=== PATIENT | male | born 1975 | race Hispanic/Latino ===

== ENCOUNTER 2022-08-13 19:57 | Emergency (ER) | payer SELFPAY ==
[2022-08-13 20:50] VITALS: BP 120/84
[2022-08-13 20:51] LABS: BASO% 0.2 % (0-3); EOS% 2.6 % (0-8); HEMATOCRIT 42.6 % (39.0-50.0); HEMOGLOBIN 14.7 g/dl (14.0-18.0); IMMATURE GRANULOCYTES 0.6 % (0.0-5.0); LYMPH% 34.9 % (15-41); MEAN CELL VOLUME 92.6 fL CALC (80.0-100.0); MEAN CORPUSCULAR HGB CONC 34.5 g/dL CAL (32.0-36.0); MONO% 10.7 % (2-13); NEUT# 2.77 thou/uL (1.82-7.42); RED BLOOD COUNT 4.6 mill/uL (4.70-6.10); RED CELL DISTRI WIDTH 12.4 % (11.5-15.5)
[2022-08-13 21:00] VITALS: BP 136/82
[2022-08-13 21:05] LABS: ALBUMIN 4.6 g/dL (3.2-5.0); ALKALINE PHOSPHATASE 89 u/l (38-126); ANION GAP 14 (6-22 (CALC)); BILIRUBIN, TOTAL 0.4 mg/dL (0.0-1.4); BUN 12 mg/dL (9-20); BUN/CREATININE RATIO 15 (12-20 (CALC)); CARBON DIOXIDE 28 mmol/l (22-30); CHLORIDE 104 mmol/l (95-108); CREATININE 0.8 mg/dL (0.7-1.3); GFR FOR AFR.AMER. > 60 ML/MIN (>=60 (CALC)); GFR OTHER RACES > 60 ML/MIN (>=60 (CALC)); LIPASE 142 u/l (23-300); MAGNESIUM 2.2 mg/dL (1.6-2.3); POTASSIUM 3.5 mmol/l (3.5-5.1); SGOT/AST 40 u/l (17-59); SODIUM 143 mmol/l (137-146); TOTAL PROTEIN 8.2 g/dL (6.3-8.2)
[2022-08-13 21:10] LABS: CPK 91 u/l (52-200)
[2022-08-13 21:20] LABS: MYOGLOBIN 23 ng/mL (0 - 121)
[2022-08-13 21:30] VITALS: BP 128/75
[2022-08-13 21:36] LABS: TSH, 3RD GENERATION 3.67 uIU/mL (0.47 - 4.68)
[2022-08-13 22:03] VITALS: BP 137/84
[2022-08-13 22:04] LABS: URINE BILIRUBIN - DIPSTICK NEGATIVE (NEGATIVE); URINE BLOOD DIPSTICK NEGATIVE (NEGATIVE); URINE COLOR YELLOW; URINE GLUCOSE - DIPSTICK NEGATIVE (NEGATIVE); URINE KETONE NEGATIVE (NEGATIVE); URINE LEUK ESTERASE NEGATIVE (NEGATIVE); URINE PH 6.5 (4.5-8.0); URINE PROTEIN - DIPSTICK NEGATIVE (NEG-TRACE); URINE SPECIFIC GRAVITY 1.015; URINE UROBILINOGEN - DIPSTICK 0.2 E.U./dL (0.2)
[2022-08-13 22:07] LABS: URINE NITRITE - DIPSTICK NEGATIVE (Negative)
[2022-08-13 22:30] VITALS: BP 129/79
[2022-08-13] MEDS ORDERED: VOLTAREN75 MG PO (23:28)
[2022-08-13] MEDS ORDERED: MIRALAX17 GM PO (23:28)
[2022-08-13] MEDS ORDERED: CITRATE OF MEGNESIA PO (23:28)
[2022-08-13 23:30] VITALS: BP 124/74
[2022-08-14 00:01] VITALS: BP 124/74
== END 2022-08-14 00:05 | disposition home or self-care (01) | DRG 563 ==
LOC: ED 19:57
PROVIDERS: Family Medicine
DX: S39.012A Strain of muscle, fascia and tendon of lower back, initial encounter (principal); K59.00 Constipation, unspecified